=== PATIENT | female | born 1990 | race Caucasian/White ===

== ENCOUNTER 2024-09-20 11:17 | Emergency (ER) | payer MEDICAID ==
[~2024-09-20] VITALS: Ht 160 cm; Wt 54.4 kg
[2024-09-20] MEDS ORDERED: AMPH30TA3 (11:30)
[2024-09-20 12:21] LABS: BASOPHILS % (AUTO) 0.7 % (0.0-2.0); EOSINOPHILS # (AUTO) 0.1 K/uL (0.0-0.7); EOSINOPHILS % (AUTO) 2.4 % (0.0-7.0); HEMATOCRIT 41.3 % (31.2-41.9); HEMOGLOBIN 13.8 g/dL (10.9-14.3); LYMPHOCYTES # (AUTO) 1.5 K/uL (0.8-4.8); MEAN CORPUSCULAR HEMOGLOBIN 29.8 uug (24.7-32.8); MEAN CORPUSCULAR HGB CONC 33 g/dL (32.3-35.6); MEAN CORPUSCULAR VOLUME 89.1 fL (75.5-95.3); MONOCYTES # (AUTO) 0.6 K/uL (0.1-1.30); MONOCYTES % (AUTO) 10.3 % (0.0-11.0); NEUTROPHILS # (AUTO) 3.2 K/uL (1.8-8.9); NEUTROPHILS % (AUTO) 58.6 % (38.5-71.5); PLATELET COUNT (AUTO) 297 K/uL (179-408); RED BLOOD CELL COUNT(AUTO) 4.63 MIL/uL (3.63-4.92); RED CELL DISTRIBUTION WIDTH 13.3 % (12.3-17.7); WHITE BLOOD COUNT (AUTO) 5.5 K/uL (3.8-11.8)
[2024-09-20 12:34] LABS: CALCIUM 9.1 mg/dL (8.5-10.1); CARBON DIOXIDE 27 mmol/L (21-32); CHLORIDE 103 mmol/L (98-107); CREATININE 0.5 mg/dL (0.6-1.3); GLUCOSE 108 mg/dL (74-106); POTASSIUM 4.4 mmol/L (3.5-5.1); SODIUM SERUM 139 mmol/L (136-145); UREA NITROGEN, BLOOD 11 mg/dL (7-18)
[2024-09-20 12:43] LABS: DIFFERENTIAL COMMENT 1
[2024-09-20 12:48] LABS: THYROID STIMULATING HORMONE 0.695 mIU/mL (0.358-3.740)
[2024-09-20 13:22] VITALS: BP 168/95; TEMP 98.5; O2SAT 97
== END 2024-09-20 13:04 | disposition home or self-care (01) ==
LOC: ER 11:17
DX: R59.1 Generalized enlarged lymph nodes (principal); F41.9 Anxiety disorder, unspecified; F32.A Depression, unspecified; F90.9 Attention-deficit hyperactivity disorder, unspecified type; Z20.822 Contact with and (suspected) exposure to COVID-19
CPT/HCPCS: 36415; 71045; 84443; 85025; 86403; 87070; A4606; A4663